=== PATIENT | male | born 1955 | race Caucasian/White ===

== ENCOUNTER 2020-10-21 13:26 | Outpatient (CLI) | payer MEDICARE ==
[2020-10-22 10:27] LABS: SARS-CoV-2 NAA Rapid Test Not Detected (NotDetected)
== END 2020-10-21 13:27 | disposition home or self-care (01) ==
LOC: LABBT 13:26
PROVIDERS: ATTEND Ophthalmology Retina Specialist
DX: Z53.9 Procedure and treatment not carried out, unspecified reason (principal)
CPT/HCPCS: U0003; U0005; 87635; U0002

== ENCOUNTER 2020-10-22 08:04 | Day surgery (SDC) | payer MEDICARE, OTHER ==
[2020-10-21 13:27] VITALS: BMI 34.9
[~2020-10-22 08:04] MED LIST: Fentanyl 100 MCG/2 ML VIAL ONE; Fluorouracil 100 MG, Enoxaparin Sodium 25 MG, EPINEPHrine 0.3 MG in Ophthalmic Irrigati... IRR SCH; Midazolam HCl 2 mg/2 ml Vial ONE; PROPOFOL 20 ML ONE
[2020-10-22] MEDS ORDERED: Cyclopentolate 1% Opth Drop 2 ML BOT ONE (09:32)
[2020-10-22] MEDS ORDERED: Phenylephrine 2.5% Ophth Soln 5 ML BOT ONE (09:32)
[2020-10-22] MEDS ORDERED: Famotidine/PF 20 mg/2ml Vial ONE (10:21)
[2020-10-22] MEDS ORDERED: Bupivacaine PF 0.75% SDV 10 ML ONE (10:32)
[2020-10-22] MEDS ORDERED: Ondansetron PF 4 MG/2 ML Vial ONE (10:32)
[2020-10-22] MEDS ORDERED: PROPOFOL 200 MG/20 ML VIAL ONE (10:32)
[2020-10-22] MEDS ORDERED: Metoclopramide HCl 10 MG/2 ML VIAL ONE (10:32)
[2020-10-22] MEDS ORDERED: Triamcinolone 40 MG/ML VIAL ONE (10:32)
[2020-10-22] MEDS ORDERED: Maxitrol 0.1% Opth Oint 3.5 GM TUBE ONE (10:32)
[2020-10-22] MEDS ORDERED: PHENYLEPHRINE-NS 100 MCG/ML 10 ML SYRINGE ONE (10:32)
[2020-10-22] MEDS ORDERED: ePHEDrine 50 MG/ML VIAL ONE (10:32)
[2020-10-22] MEDS ORDERED: Lidocaine 4% PF 5 ML AMP ONE (10:32)
[2020-10-22] MEDS ORDERED: Lidocaine 1% PF 5 ML VIAL ONE ×2 (10:32)
[2020-10-22] MEDS ORDERED: Enoxaparin Sodium 30 MG/0.3 ML SYRINGE ONE (10:32)
[2020-10-22] MEDS ORDERED: CEFAZOLIN 1 GM VIAL ONE (10:32)
== END 2020-10-22 15:55 | disposition home or self-care (01) ==
LOC: SDC 08:04
PROVIDERS: ATTEND Ophthalmology Retina Specialist
PROC: 08T53ZZ Resection of Left Vitreous, Percutaneous Approach (ICD-10-PCS; principal; 2020-10-22)
DX: H33.022 Retinal detachment with multiple breaks, left eye (principal); Z88.0 Allergy status to penicillin; Z20.822 Contact with and (suspected) exposure to COVID-19
CPT/HCPCS: 67113; 93005; C1814; 93010; J0171; J0690; J1650; J2250; J2405; J2704; J2765; J3010; J3301; J3490; J9190; S0028

== ENCOUNTER 2021-05-13 08:34 | Day surgery (SDC) | payer MEDICARE, OTHER ==
[2021-05-12 12:25] VITALS: BMI 34.2
[~2021-05-13 08:34] MED LIST changes: -PROPOFOL 20 ML ONE
[2021-05-13] MEDS ORDERED: Phenylephrine 2.5% Ophth Soln 5 ML BOT ONE (08:51)
[2021-05-13] MEDS ORDERED: Cyclopentolate 1% Opth Drop 2 ML BOT ONE (08:51)
[2021-05-13] MEDS ORDERED: Lidocaine 4% PF 5 ML AMP ONE (10:26)
[2021-05-13] MEDS ORDERED: PROPOFOL 200 MG/20 ML VIAL ONE (10:26)
[2021-05-13] MEDS ORDERED: Enoxaparin Sodium 30 MG/0.3 ML SYRINGE ONE (10:26)
[2021-05-13] MEDS ORDERED: Lidocaine 1% PF 5 ML VIAL ONE (10:26)
[2021-05-13] MEDS ORDERED: Bupivacaine PF 0.75% SDV 10 ML ONE (10:26)
[2021-05-13] MEDS ORDERED: CEFAZOLIN 1 GM VIAL ONE (10:26)
[2021-05-13] MEDS ORDERED: Maxitrol 0.1% Opth Oint 3.5 GM TUBE ONE (10:26)
[2021-05-13] MEDS ORDERED: Triamcinolone 40 MG/ML VIAL ONE (10:26)
== END 2021-05-13 11:45 | disposition home or self-care (01) ==
LOC: SDC 08:34
PROVIDERS: ATTEND Ophthalmology Retina Specialist
PROC: 08T53ZZ Resection of Left Vitreous, Percutaneous Approach (ICD-10-PCS; principal; 2021-05-13)
PROC: 08NF3ZZ Release Left Retina, Percutaneous Approach (ICD-10-PCS; 2021-05-13)
DX: H43.312 Vitreous membranes and strands, left eye (principal); Z79.899 Other long term (current) drug therapy; Z88.0 Allergy status to penicillin
CPT/HCPCS: J0171; J0690; J1650; J2250; J2704; J3010; J3301; J3490; J9190